=== PATIENT | male | born 1960 | race Caucasian/White ===

== ENCOUNTER → 2016-08-29 | Outpatient (CLI) | payer OTHER ==
[2016-08-29 08:25] LABS: BASOPHILS # (AUTO) 0.1 X10^3/uL (0.0-0.1); BASOPHILS % (AUTO) 1.2 % (0.2-1.0); EOSINOPHILS # (AUTO) 0.3 x10^3/uL (0.0-0.2); HEMATOCRIT 38.2 % (42.0-54.0); HEMOGLOBIN 13.1 g/dL (13.5-18.0); LYMPHOCYTES # (AUTO) 1.1 X10^3/uL (1.3-2.9); MEAN CORPUSCULAR HEMOGLOBIN 31.6 pg (27.0-34.0); MEAN CORPUSCULAR HGB CONC 34.3 g/dL (33.0-35.0); MEAN CORPUSCULAR VOLUME 92.2 fL (80.0-100.0); MEAN PLATELET VOLUME 7.2 fL (7.4-11.0); MONOCYTES # (AUTO) 0.4 x10^3/uL (0.3-0.8); MONOCYTES % (AUTO) 8.5 % (0.0-13.0); NEUTROPHILS # (AUTO) 2.9 x10^3/uL (2.2-4.8); NEUTROPHILS % (AUTO) 61.3 % (42.0-75.0); PLATELET COUNT 116 X10^3/uL (150.0-450.0); RED BLOOD COUNT 4.14 X10^6/uL (4.7-6.0); RED CELL DISTRIBUTION WIDTH 14.3 % (11.6-16.5); WHITE BLOOD COUNT 4.8 X10^3/uL (3.6-10.0)
--- NOTE | 2016-08-29 08:39 | RAD ---
HISTORY: COPD Study: Chest two-view Comparison: None Findings: The heart is within normal limits in size. The dejan are normal. The lungs are mildly hyperinflated b ut free of acute alveolar infiltrates. No pleural effusions are identified. The bony thorax is unrem arkable. IMPRESSION: Lungs hyperinflated but clear Reported By:
[2016-08-29 08:46] LABS: ALANINE AMINOTRANSFERASE 21 Units/L (12-78); ALBUMIN 3.1 g/dL (3.4-5.0); ALKALINE PHOSPHATASE 116 Units/L (46-116); ASPARTATE AMINO TRANSFERASE 24 Units/L (15-37); BLOOD UREA NITROGEN 8 mg/dL (7-18); CALCIUM 8.5 mg/dL (8.5-10.1); CARBON DIOXIDE 27.4 mmol/L (21-32); CHLORIDE 109 mmol/L (98-107); CHOL/HDL RATIO 3.9 (0.0-5.0); CHOLESTEROL 124 mg/dL (0-200); COR CA(FOR HYPOALB) 9.2 mg/dL (8.5-10.1); CREATININE 0.97 mg/dL (0.70-1.30); GLUCOSE 94 mg/dL (65-99); HDL CHOLESTEROL 32 mg/dL (40-60); SODIUM 143 mmol/L (136-145); T4 (THYROXINE) 6.6 ug/dL (4.7-13.3); TOTAL PROTEIN 7.5 g/dL (6.4-8.2); TRIGLYCERIDES 49 mg/dL (0-150); TSH (3RD GENERATION) 4.051 uIU/mL (0.358-3.74); eGFR BLACK RACES > 60 (>60); eGFR NON BLACK RACES > 60 (>60)
== END ==
LOC: LAB 07:54
PROVIDERS: ATTEND Internal Medicine
DX: J44.9 Chronic obstructive pulmonary disease, unspecified (principal); I25.10 Atherosclerotic heart disease of native coronary artery without angina pectoris; E78.2 Mixed hyperlipidemia
CPT/HCPCS: 36415; 71020; 80053; 80061; 84436; 84443; 85025; 93005; 93010

== ENCOUNTER 2019-01-19 11:34 | Observation (INO) ==
[2019-01-19 11:48] VITALS: BMI 23.6
--- NOTE | 2019-01-19 12:34 | DR.EXTPAIN ---
HPI Time seen Time Seen by Provider: 01/19/19 12:34 PCP Primary Care Physician: FRANCIS HPI Comment HPI Comment: PATIENT IS 58YR OLD WHITE MALE IN ED WITH REDNESS AND PAIN RIGHT LEG WITH RED STRAKING TO RIGHT UPPER THIGH NEAR GROIN AREA. REDNESS STARTED FEW DAYS AGO AFTER PATIENT HIT HIS RIGHT LEG AND SUSTAIN A SMALL ABRSION. THIS HAS PROGRESSIVELY GOTTEN WORSE. NO FEVER. CONSTANT BURNING PAIN 7/10 RADIATING TO FOOT AND THIGHS ON RIGHT SIDE. MEDS TAKEN AT HOME DID NOT HELP PAIN. PATIENT SAID SEVERAL DAYS AGO, STOOL WAS DARK IN COLLOR. HAVE CIRRHROSIS OF THE LIVE AND UNDER CARE OF GI DOCTOR IN [place]. Complaint/Symptoms Chief Complaint Doctor Comments: SWELLING, REDNESS WITH STREKING RIGHT LEG TIMES FEW DAYS. Chief Complaint:: PT STATES HE HIT HIS LEG ON SOMETHING A FEW DAYS AGO AND SINCE THEN HE HAS NOTICED REDNESS ON SWELLING INTO RIGHT LOWER LEG THAT EXTENDS UP TO THE INNER RIGHT THIGH. PT C/O CONSTANT BURING PAIN INTO LEG/ Nurses notes reviewed Nurses Notes Review: Yes Source History Provided: Patient Mode of arrival Mode of Arrival: Ambulatory Timing Onset of Chief Complaint: 01/19/19 Context History of: None Associated signs and symptoms Associated Signs and Symptoms: Pain and Swelling Other history Other History: PATIENT HAVE LIVER CIRRHOSIS. PMH PMH Past Medical History: Yes Past Medical History: Liver Disease and PUD Past Medical History Comment: CIRRHOSIS Past Surgical History: Yes Surgical History: Ortho Surgery Family History History of Family Medical Conditions: Yes Family Medical History: [place] and Coronary Artery Disease Social History Does patient currently use any type of tobacco product: No Have you used tobacco products in the last 12 months: No Type of Tobacco Use: Cigarettes Does any household member use tobacco: Yes Alcohol Use: None Do you use any recreational Drugs:: No Lives With: Family Lives Where: Home infectious screening In the last 2 months have you had wt loss of >10#?: NO Have you had fever, night sweats or hemotysis?: No Have you traveled outside the country in the last 6 months?: No Isolation: Standard ROS Review of Systems Constitutional: See HPI, Weakness and Fatigue; negative Fever Eyes: No Symptoms Reported and See HPI; negative Eye Pain and Discharge ENTM: No Symptoms Reported and See HPI; negative Ear Pain, Nose Discharge, Nose Congestion and Throat Pain Respiratoy: See HPI and Short of Breath; negative Moist Cough and Wheezing Cardiovascular: See HPI and Edema; negative Chest Pain and Palpitations Gastrointestinal/Abdominal: See HPI, Abdominal Pain and Other (ASCITIS.); negative Constipation, Diarrhea, Nausea and Vomiting Genitourinary: No Symptoms Reported; negative Dysuria, Frequency and Hematuria Neurological: See HPI, Depressed, Headache, Weakness and Dizziness Musculoskeletal: See HPI, Back Pain and Muscle Pain Integumentary: Change in Color (REDNESS AND SWELLING RIGHT LEG WIT RED STREAKING TO RIGHT THIGH.) and Juandice Hematologic/Lymphatic: See HPI, Anemia, Easy Bleeding and Easy Bruising; negative Swollen Glands Endocrine: See HPI and Decreased Appetite; negative Increased Thirst and Inc reased Urine Psychiatric: See HPI and Depression; negative Hallucinations All Other Systems: Reviewed and Negative PE Vital Signs Vitals: Temperature 97.7 F Pulse Rate [Left Brachial] 103 Pulse Rate 118 Respiratory Rate 20 Blood Pressure [Right Arm] 153/88 Blood Pressure [Left Arm] 117/65 Blood Pressure 106/66 O2 Sat by Pulse Oximetry 98 General Limitations: No Limitations General Appearance: Alert and In No Apparent Distress Head Head Exam: Normal Inspection and Atraumatic Eyes Eye exam: Normal Appearance, PERRL, EOMI and Scleral Icterus; negative Conjunctival Injection (PALE CONJUNCTIVA.) ENT ENT Exam: Normal Exam, Normal Oropharynx, Normal External Ear Exam and TM's Normal Bilaterally Neck Neck Exam: Normal Inspection and Trachea Midline; negative Tenderness and Lymphadenopathy Chest Chest Inspection: Normal Inspection and Symmetric Chest Wall Rise; negative Tenderness Respiratory Respiratory Exam: Normal Lung Sounds Bilat; negative Accessory Muscle Use, Chest Wall Tenderness and Respiratory Distress Respiratory Exam: Bilateral: Rhonchi and Lower: Rhonchi Cardiovascular Cardiovascular Exam: Regular Rate, Normal Rhythm and Normal Heart Sounds; negative Systolic Murmur and Diastolic Murmur Abdominal Exam Abdominal Exam: Normal Bowel Sounds, Soft, Tenderness and Ascites; negative Organomegaly and Mass Abdominal Tenderness: Diffuse Extremities Extremities Exam: Tenderness (RIGHT LEG RED, SWOLLEN AND TENDER. RED STREAKING INNER RIGHT THIGH NEAR GROIN AREA.), Normal Capillary Refill and Edema; negative Calf Tenderness Lower Extremities Neurovascular/Tendon Exam: Normal Capillary Refill; negative Pulse Deficit, Motor Deficit and Sensory Deficit Gait Exam: Observed and Normal Back Back Exam: Normal Inspection; negative Tenderness, (R) CVA Tenderness, (L) CVA Tenderness, Paraspinal Tenderness and Vertebral Tenderness Neurological Neurological Exam: Alert, Oriented X3 and CN II-XII Intact; negative Motor Sensory Deficit Psychiatric Psychiatric Exam: Normal Affect and Normal Mood Skin Skin Exam: Erythema and Other (JAUNDICE.) Type of Lesion: Abscess Distribution: RLE Description: Tenderness and Erythematous MDM Differential Diagnosis Differential Diagnosis: Other (CELLULITIS RIGHT LEG, JAUDICE, LIVER CIRRHOSIS, ANEMIA,) COURSE Treatment Treatment: SEE ORDERS. Consultation Consultation Comments: DISCUSS PATIENTWITH DR. CARBAJAL. HE WILL ADMIT PATIENT. TIME 3MINUTES. ORDERS DONE. Education/Counseling Education/Counseling: Patient Educated On: Diagnosis ROR Labs Reviewed Laboratory Results Reviewed?: Yes Result Diagrams: 01/20/19 05:42 01/20/19 05:42 Laboratory: 01/20/19 08:54 Leg - Right Gram Stain - Final WBC 6.7 X10^3/uL (3.6-10.0) 01/20/19 05:42 RBC 2.09 X10^6/uL (4.7-6.0) L 01/20/19 05:42 Hgb 7.5 g/dL (13.5-18.0) L 01/20/19 05:42 Hct 20.6 % (42.0-54.0) L 01/20/19 05:42 MCV 98.8 fL (80.0-100.0) 01/20/19 05:42 MCH 35.7 pg (27.0-34.0) H 01/20/19 05:42 MCHC 36.2 g/dL (33.0-35.0) H 01/20/19 05:42 RDW 13.5 % (11.6-16.5) 01/20/19 05:42 Plt Count 123 X10^3/uL (150.0-450.0) L 01/20/19 05:42 Plt Count Comment Decreased (ADEQUATE) 01/20/19 05:42 MPV 8.0 fL (7.4-11.0) 01/20/19 05:42 Neut % (Auto) 69.5 % (42.0-75.0) 01/20/19 05:42 Lymph % (Auto) 13.8 % (21.0-51.0) L 01/20/19 05:42 [place] % (Auto) 11.5 % (0.0-13.0) 01/20/19 05:42 Eos % (Auto) 5.2 % (0.9-2.9) H 01/20/19 05:42 Baso % (Auto) 0 % (0.2-1.0) L 01/20/19 05:42 Neut # (Auto) 4.6 x10^3/uL (2.2-4.8) 01/20/19 05:42 Lymph # (Auto) 0.9 X10^3/uL (1.3-2.9) L 01/20/19 05:42 [place] # (Auto) 0.8 x10^3/uL (0.3-0.8) 01/20/19 05:42 Eos # (Auto) 0.3 x10^3/uL (0.0-0.2) H 01/20/19 05:42 Baso # (Auto) 0.0 X10^3/uL (0.0-0.1) 01/20/19 05:42 Absolute Nucleated RBC 0.1 /100WBC 01/20/19 05:42 Plt Morphology Comment Normal (NORMAL) 01/20/19 05:42 RBC Morphology Abnormal (NORMAL) 01/20/19 05:42 Hypochromasia Slight A 01/20/19 05:42 PT 17.8 SECONDS (11.8-14.3) 01/19/19 12:53 INR Target Range - 01/19/19 12:53 INR 1.53 (0.8-1.3) H 01/19/19 12:53 APTT 32.5 SECONDS (22.9-36.5) 01/19/19 12:53 PTT Comment - 01/19/19 12:53 Sodium 138 mmol/L (136-145) 01/20/19 05:42 Corrected Sodium 138 mmol/L (136-145) 01/20/19 05:42 Potassium 3.5 mmol/L (3.5-5.1) 01/20/19 05:42 Chloride 106 mmol/L (98-107) 01/20/19 05:42 Carbon Dioxide 21.8 mmol/L (21-32) 01/20/19 05:42 BUN 16 mg/dL (7-18) 01/20/19 05:42 Creatinine 0.83 mg/dL (0.70-1.30) 01/20/19 05:42 Est GFR (MDRD) Af Amer > 60 (>60) 01/20/19 05:42 Est GFR (MDRD) Non-Af > 60 (>60) 01/20/19 05:42 Glucose 112 mg/dL (65-99) H 01/20/19 05:42 Calcium 7.8 mg/dL (8.5-10.1) L 01/20/19 05:42 Corrected Calcium 9.1 mg/dL (8.5-10.1) 01/20/19 05:42 Magnesium 2.0 mg/dL (1.7-2.9) 01/20/19 05:42 Iron 47 ug/dL (50-175) L 01/20/19 05:42 Transferrin 166 mg/dL (202-364) L 01/20/19 05:42 Ferritin 174 ng/mL (26-388) 01/20/19 05:42 Total Bilirubin 1.10 mg/dL (0.2-1.0) H 01/20/19 05:42 AST 44 Units/L (15-37) H 01/20/19 05:42 ALT 28 Units/L (12-78) 01/20/19 05:42 Alkaline Phosphatase 133 Units/L (46-116) H 01/20/19 05:42 Total Protein 6.4 g/dL (6.4-8.2) 01/20/19 05:42 Albumin 2.4 g/dL (3.4-5.0) L 01/20/19 05:42 Globulin 4.0 g/dL (2.5-4.5) 01/20/19 05:42 Albumin/Globulin Ratio 0.6 Ratio (1.1-2.1) L 01/20/19 05:42 Vitamin B12 827 pg/mL (193-986) 01/20/19 05:42 Folate 12.4 ng/mL (>8.6) 01/20/19 05:42 Specimen Type Random urine 01/19/19 13:07 Urine Color Dark yellow (YELLOW) 01/19/19 13:07 Urine Appearance Slightly hazy (CLEAR) 01/19/19 13:07 Urine pH 6.0 (5.0 - 8.0) 01/19/19 13:07 Ur Specific [place] 1.020 (1.000-1.030) 01/19/19 13:07 Urine Protein 1+ (NEGATIVE) 01/19/19 13:07 Urine Glucose (UA) Negative (NEGATIVE) 01/19/19 13:07 Urine Ketones Negative (NEGATIVE) 01/19/19 13:07 Urine Occult Blood Negative (NEGATIVE) 01/19/19 13:07 Urine Nitrite Negative (NEGATIVE) 01/19/19 13:07 Urine Bilirubin Negative (NEGATIVE) 01/19/19 13:07 Urine Urobilinogen 2+ (NORMAL) 01/19/19 13:07 Ur Leukocyte Esterase 1+ (NEGATIVE) 01/19/19 13:07 Urine RBC 0-2 /HPF (0-3) 01/19/19 13:07 Urine WBC 3-5 /HPF (0-5) 01/19/19 13:07 Ur Squamous Epith Cells Few /HPF (NEGATIVE) 01/19/19 13:07 Calcium Oxalate Crystal Moderate /HPF (NEGATIVE) 01/19/19 13:07 Amorphous Sediment 1+ /HPF (NEGATIVE) 01/19/19 13:07 Urine Bacteria Trace /HPF (NEGATIVE) 01/19/19 13:07 Urine Sperm Rare /HPF (NEGATIVE) 01/19/19 13:07 Ur Culture Indicated? No/not indicated 01/19/19 13:07 Blood Type A POSITIVE 01/19/19 14:34 Antibody Screen Negative 01/19/19 14:34 Opioid Opioid Risk Tool Age (Nicholas box if 16-45): No Total: 0 Total Score Risk Category: Low Risk Copyright: Alec predicting aberrant behaviors Diagnosis Discharge Problem: Cellulitis of right lower extremity Anemia Qualifiers: Anemia type: unspecified type Qualified Code(s): D64.9 - Anemia, unspecified Cirrhosis Qualifiers: Hepatic cirrhosis type: unspecified hepatic cirrhosis Ascites presence: with ascites Qualified Code(s): K74.60 - Unspecified cirrhosis of liver
[2019-01-19 13:07] LABS: BASOPHILS # (AUTO) 0.1 X10^3/uL (0.0-0.1); EOSINOPHILS # (AUTO) 0.2 x10^3/uL (0.0-0.2); HEMOGLOBIN 7.4 g/dL (13.5-18.0); RED BLOOD COUNT 2.07 X10^6/uL (4.7-6.0); RED CELL DISTRIBUTION WIDTH 13.3 % (11.6-16.5)
[2019-01-19 13:12] LABS: BASOPHILS % (AUTO) 1.2 % (0.2-1.0); EOSINOPHILS % (AUTO) 3.3 % (0.9-2.9); LYMPHOCYTES # (AUTO) 0.9 X10^3/uL (1.3-2.9); LYMPHOCYTES % (AUTO) 15.4 % (21.0-51.0); MEAN CORPUSCULAR HEMOGLOBIN 35.5 pg (27.0-34.0); MEAN CORPUSCULAR HGB CONC 36.7 g/dL (33.0-35.0); MEAN CORPUSCULAR VOLUME 96.7 fL (80.0-100.0); MEAN PLATELET VOLUME 7.3 fL (7.4-11.0); MONOCYTES # (AUTO) 0.5 x10^3/uL (0.3-0.8); MONOCYTES % (AUTO) 9.2 % (0.0-13.0); NEUTROPHILS # (AUTO) 4.1 x10^3/uL (2.2-4.8); NEUTROPHILS % (AUTO) 70.9 % (42.0-75.0); PLATELET COUNT 131 X10^3/uL (150.0-450.0); WHITE BLOOD COUNT 5.8 X10^3/uL (3.6-10.0)
[2019-01-19 13:20] LABS: ALANINE AMINOTRANSFERASE 24 Units/L (12-78); ALBUMIN 2.6 g/dL (3.4-5.0); ALKALINE PHOSPHATASE 117 Units/L (46-116); ASPARTATE AMINO TRANSFERASE 37 Units/L (15-37); BLOOD UREA NITROGEN 23 mg/dL (7-18); CALCIUM 7.4 mg/dL (8.5-10.1); CARBON DIOXIDE 23.4 mmol/L (21-32); CHLORIDE 102 mmol/L (98-107); COR CA(FOR HYPOALB) 8.5 mg/dL (8.5-10.1); CREATININE 0.78 mg/dL (0.70-1.30); SODIUM 134 mmol/L (136-145); TOTAL PROTEIN 6.5 g/dL (6.4-8.2); eGFR NON BLACK RACES > 60 (>60)
[2019-01-19 13:31] LABS: PLATELET MORPHOLOGY COMMENT NORMAL (NORMAL)
[2019-01-19] MEDS ORDERED: VANCOMYCIN HCL 1 G in D5W 250 ML IV 250 ML IV ONE (14:16)
[2019-01-19] MEDS ORDERED: VANCOMYCIN HCL ONE (14:22)
[2019-01-19] MEDS ORDERED: NS 250 ML IV 250 ML IV ONE (14:22)
[2019-01-19 14:44] LABS: BILIRUBIN,URINE NEGATIVE (NEGATIVE); BLOOD/HEMOGLOBIN,URINE NEGATIVE (NEGATIVE); GLUCOSE, URINE NEGATIVE (NEGATIVE); KETONES,URINE NEGATIVE (NEGATIVE); LEUKOCYTE ESTERASE ,URINE 1+ (NEGATIVE); NITRITES,URINE NEGATIVE (NEGATIVE); PROTEIN,URINE 1+ (NEGATIVE); UROBILINOGEN,URINE 2+ (NORMAL)
[2019-01-19] MEDS: PROTONIX INJ 40 MG VIAL 80 MG in NS 100 ML IV 80 ML IV SCH (14:44)
[2019-01-19 14:49] LABS: AMORPHOUS SEDIMENT,UR 1+ /HPF (NEGATIVE); APPEARANCE,URINE SLIGHTLY HAZY (CLEAR); BACTERIA,URINE TRACE /HPF (NEGATIVE); CALCIUM OXALATE CRYSTALS,UR MODERATE /HPF (NEGATIVE); COLOR,URINE DARK YELLOW (YELLOW); RBC,URINE 0-2 /HPF (0-3); SPERM,URINE RARE /HPF (NEGATIVE); SQUAMOUS EPITHELIAL CELL,UR FEW /HPF (NEGATIVE)
[2019-01-19] MEDS ORDERED: PHARMACY CONSULT - VANCOMYCIN XX SCH (15:00)
[2019-01-19] MEDS ORDERED: POTASSIUM CHL 60 MEQ/NS 0.45% 500 ML IV PRN (15:47)
[2019-01-19] MEDS ORDERED: K-DUR TAB 20 MEQ PO PRN (15:47)
[2019-01-19] MEDS ORDERED: POTASSIUM CHL 40 MEQ/NS 0.45% 500 ML IV PRN (15:47)
[2019-01-19] MEDS ORDERED: KLOR-CON PO PRN (15:47)
[2019-01-19] MEDS ORDERED: MICRO K EXTEN CAP 10 MEQ PO PRN (15:47)
[2019-01-19] MEDS ORDERED: K-RIDER 10 MEQ/NS 100 ML 10 MEQ/100 ML BAG IV PRN (15:47)
[2019-01-19] MEDS ORDERED: POTASSIUM CHLORIDE LIQ 20 MEQ UDC PO PRN (15:47)
[2019-01-19] MEDS ORDERED: ZOFRAN TAB 4 MG PO PRN (17:24)
[2019-01-19] MEDS: NS 1000 ML 1,000 ML IV SCH (20:04)
[2019-01-19] MEDS: VANCOMYCIN HCL 1 G in D5W 250 ML IV 250 ML IV SCH (21:52)
[2019-01-20] MEDS: MAGNESIUM SULFATE 1 GRAM/100 mL PREMIX 1 GM/100 ML BAG IV PRN ×2 (00:23→01:20)
[2019-01-20] MEDS: PROTONIX INJ 40 MG VIAL 80 MG in NS 100 ML IV 80 ML IV SCH ×3 (01:20→14:09)
[2019-01-20] MEDS: NS 1000 ML 1,000 ML IV SCH ×3 (02:15→11:17)
[2019-01-20] MEDS: VANCOMYCIN HCL 1 G in D5W 250 ML IV 250 ML IV SCH ×2 (05:32→14:10)
[2019-01-20 06:38] LABS: BASOPHILS % (AUTO) 0 % (0.2-1.0); EOSINOPHILS # (AUTO) 0.3 x10^3/uL (0.0-0.2); EOSINOPHILS % (AUTO) 5.2 % (0.9-2.9); HEMATOCRIT 20.6 % (42.0-54.0); HEMOGLOBIN 7.5 g/dL (13.5-18.0); LYMPHOCYTES # (AUTO) 0.9 X10^3/uL (1.3-2.9); LYMPHOCYTES % (AUTO) 13.8 % (21.0-51.0); MEAN CORPUSCULAR HEMOGLOBIN 35.7 pg (27.0-34.0); MEAN CORPUSCULAR HGB CONC 36.2 g/dL (33.0-35.0); MEAN CORPUSCULAR VOLUME 98.8 fL (80.0-100.0); MONOCYTES # (AUTO) 0.8 x10^3/uL (0.3-0.8); MONOCYTES % (AUTO) 11.5 % (0.0-13.0); NEUTROPHILS # (AUTO) 4.6 x10^3/uL (2.2-4.8); NEUTROPHILS % (AUTO) 69.5 % (42.0-75.0); PLATELET COUNT 123 X10^3/uL (150.0-450.0); RED BLOOD COUNT 2.09 X10^6/uL (4.7-6.0); RED CELL DISTRIBUTION WIDTH 13.5 % (11.6-16.5); WHITE BLOOD COUNT 6.7 X10^3/uL (3.6-10.0)
[2019-01-20 06:58] LABS: ALANINE AMINOTRANSFERASE 28 Units/L (12-78); ALBUMIN 2.4 g/dL (3.4-5.0); ALKALINE PHOSPHATASE 133 Units/L (46-116); ASPARTATE AMINO TRANSFERASE 44 Units/L (15-37); BLOOD UREA NITROGEN 16 mg/dL (7-18); CALCIUM 7.8 mg/dL (8.5-10.1); CARBON DIOXIDE 21.8 mmol/L (21-32); CHLORIDE 106 mmol/L (98-107); COR CA(FOR HYPOALB) 9.1 mg/dL (8.5-10.1); COR NA(FOR HYPERGLY) 138 mmol/L (136-145); CREATININE 0.83 mg/dL (0.70-1.30); SODIUM 138 mmol/L (136-145); TOTAL PROTEIN 6.4 g/dL (6.4-8.2); eGFR NON BLACK RACES > 60 (>60)
[2019-01-20 07:24] LABS: HYPOCHROMASIA SLIGHT; PLATELET MORPHOLOGY COMMENT NORMAL (NORMAL)
[2019-01-20] MEDS ORDERED: ULTRAM PO PRN (09:13)
[2019-01-20] MEDS ORDERED: LIBRIUM PO PRN (09:16)
[2019-01-20] MEDS ORDERED: MORPHINE SULFATE INJ 2 MG INJ IVP PRN (09:23)
[2019-01-20] MEDS ORDERED: PHARMACY COMMENT IV NR (13:30)
[2019-01-20] MEDS ORDERED: D5W 250 ML IV 250 ML IV ONE (14:01)
[2019-01-20 16:30] VITALS: BP 153/88
--- NOTE | 2019-01-20 17:42 | DR.H&P ---
H&P - History & Physical for Day of: H&P Date: 01/19/19 - Chief Complaint Chief Complaint: sore to right leg with infection - History of Present Illness History of Present Illness: PT STATES HE HIT HIS LEG ON SOMETHING A FEW DAYS AGO AND SINCE THEN HE HAS NOTICED REDNESS ON SWELLING INTO RIGHT LOWER LEG THAT EXTENDS UP TO THE INNER RIGHT THIGH. PT C/O CONSTANT BURING PAIN INTO LEG. PT HAS PMH OF CIRRHOSIS. PT HAD OA RIGHT HIP. PT ADMITTED FOR IV ATBX THERAPY, BLOOD CULTURES ON ADMISSION. - Past Medical History Past Medical History: Anxiety, Arthritis, Liver Disease, PUD - Past Surgical History Surgical History: Joint Replacement, Other - Family History Family Medical History: [place], Coronary Artery Disease - Social History Does patient currently use any type of tobacco product: Yes Have you used tobacco products in the last 12 months: Yes Type of Tobacco Use: Cigarettes How many years tobacco product used: 45 Does any household member use tobacco: No Alcohol Use: None Drug Use: Prescription Drugs - Medications Home Medications: No Known Drug Allergies Allergy (Verified 01/19/19 11:47) CONTINUE taking the following medications NK 01/19/19 [History] - Review of Systems Constitutional: Fever, Weakness Eyes: No Symptoms Reported ENT: No Symptoms Reported Respiratory: No Symptoms Reported Cardiovascular: No Symptoms Reported Gastrointestinal: No Symptoms Reported Musculoskeletal: No Symptoms Reported, Leg Pain Skin: Wound Neurological: No Symptoms Reported - Physical Exam Vital Signs: Temperature 97.7 F Pulse Rate [Left Brachial] 103 Pulse Rate 118 Respiratory Rate 20 Blood Pressure [Right Arm] 153/88 Blood Pressure [Left Arm] 117/65 Blood Pressure 106/66 O2 Sat by Pulse Oximetry 98 Oriented: Normal Eyes: Normal Ear: Normal Nose: Normal Throat: Normal Respiratory: Clear Throughout Cardiovascular: Normal : Normal Auscultation: Bowel Sounds: Normal Palpation: Normal Tenderness: Normal Skin: Red, Tender, Hot, Wound (RIGHT LOWER LEG) Musculoskeletal: Right, Hip, Leg, Swelling, Tender Psychiatric: Normal Speech Pattern: Clear, Appropriate - Assessment/Plan (1) Cirrhosis Status: Acute Plan: ADMIT, BLOOD CULTURE COLLECTED ON ADMISSION. AM LABS, IV ATBX THERAPY. ANEMIA PANEL, OCCULT STOOL (2) Cellulitis of right lower extremity Status: Acute (3) Anemia Status: Acute - Allergies Allergies/Adverse Reactions: Allergies Allergy/AdvReac Type Severity Reaction Status Date / Time No Known Drug Allergies Allergy Verified 01/19/19 11:47
--- NOTE | 2019-01-20 17:47 | PCM.PROG ---
Progress Note - Progress Note for Day of Date of Exam: 01/20/19 (0800) - Subjective Subjective: 58 WM ER ADMISSIN WITH RLE WOUND WITH CELLULITIS BLOOD CULTURE COLLECTED ON ADMISSSION, PT HAS HX OF LIVER DISEASE, CIRRHOSIS. PT HGB 7.5. ANEMIA PANEL OBTAINED WITH FE DEFICIENCY. PT HAD BEDSIDE DRAINAGE OF ABSCESS WITH THICK PURULENT D/C CULTURED X 2. PT STATES HE FEELS OK, JUST PAIN TO RLE WHEN TOUCHING REDENED AREA. PT GIVEN LIBRIUM PRN DUE TO HX OF ETOH USE, PRN PAIN CONTROL. - Past Medical Family Social History Past Med/Fam/Surg Hx: No changes since H&P Allergies: Allergies No Known Drug Allergies Allergy (Verified 01/19/19 11:47) - Review of Systems ROS: No change since H&P - Vital Signs and I&O's Vital Signs: Temperature 97.7 F Pulse Rate [Left Brachial] 103 Pulse Rate 118 Respiratory Rate 20 Blood Pressure [Right Arm] 153/88 Blood Pressure [Left Arm] 117/65 Blood Pressure 106/66 O2 Sat by Pulse Oximetry 98 Intake and Output: Intake & Output 01/18/19 01/19/19 01/20/19 01/21/19 11:59 11:59 11:59 11:59 Intake Total 1929 1580 / 1580 Balance 1929 1580 / 1580 - Physical Exam Oriented: Normal Eyes: Normal Ear: Normal Nose: Normal Throat: Normal Respiratory: Normal Cardiovascular: Normal : Normal Auscultation: Bowel Sounds: Normal Tenderness: Normal Skin: Red, Tender, Hot, Wound (RIGHT LOWER LEG) Musculoskeletal: Right, Hip, Leg, Swelling, Tender Psychiatric: Normal Speech Pattern: Clear, Appropriate - Laboratory and Diagnostics Result Diagrams: 01/20/19 05:42 01/20/19 05:42 Labs: 01/20/19 08:54 Leg - Right Gram Stain - Final Laboratory WBC 6.7 X10^3/uL (3.6-10.0) 01/20/19 05:42 RBC 2.09 X10^6/uL (4.7-6.0) L 01/20/19 05:42 Hgb 7.5 g/dL (13.5-18.0) L 01/20/19 05:42 Hct 20.6 % (42.0-54.0) L 01/20/19 05:42 MCV 98.8 fL (80.0-100.0) 01/20/19 05:42 MCH 35.7 pg (27.0-34.0) H 01/20/19 05:42 MCHC 36.2 g/dL (33.0-35.0) H 01/20/19 05:42 RDW 13.5 % (11.6-16.5) 01/20/19 05:42 Plt Count 123 X10^3/uL (150.0-450.0) L 01/20/19 05:42 Plt Count Comment Decreased (ADEQUATE) 01/20/19 05:42 MPV 8.0 fL (7.4-11.0) 01/20/19 05:42 Neut % (Auto) 69.5 % (42.0-75.0) 01/20/19 05:42 Lymph % (Auto) 13.8 % (21.0-51.0) L 01/20/19 05:42 [place] % (Auto) 11.5 % (0.0-13.0) 01/20/19 05:42 Eos % (Auto) 5.2 % (0.9-2.9) H 01/20/19 05:42 Baso % (Auto) 0 % (0.2-1.0) L 01/20/19 05:42 Neut # (Auto) 4.6 x10^3/uL (2.2-4.8) 01/20/19 05:42 Lymph # (Auto) 0.9 X10^3/uL (1.3-2.9) L 01/20/19 05:42 [place] # (Auto) 0.8 x10^3/uL (0.3-0.8) 01/20/19 05:42 Eos # (Auto) 0.3 x10^3/uL (0.0-0.2) H 01/20/19 05:42 Baso # (Auto) 0.0 X10^3/uL (0.0-0.1) 01/20/19 05:42 Absolute Nucleated RBC 0.1 /100WBC 01/20/19 05:42 Plt Morphology Comment Normal (NORMAL) 01/20/19 05:42 RBC Morphology Abnormal (NORMAL) 01/20/19 05:42 Hypochromasia Slight A 01/20/19 05:42 PT 17.8 SECONDS (11.8-14.3) 01/19/19 12:53 INR Target Range - 01/19/19 12:53 INR 1.53 (0.8-1.3) H 01/19/19 12:53 APTT 32.5 SECONDS (22.9-36.5) 01/19/19 12:53 PTT Comment - 01/19/19 12:53 Sodium 138 mmol/L (136-145) 01/20/19 05:42 Corrected Sodium 138 mmol/L (136-145) 01/20/19 05:42 Potassium 3.5 mmol/L (3.5-5.1) 01/20/19 05:42 Chloride 106 mmol/L (98-107) 01/20/19 05:42 Carbon Dioxide 21.8 mmol/L (21-32) 01/20/19 05:42 BUN 16 mg/dL (7-18) 01/20/19 05:42 Creatinine 0.83 mg/dL (0.70-1.30) 01/20/19 05:42 Est GFR (MDRD) Af Amer > 60 (>60) 01/20/19 05:42 Est GFR (MDRD) Non-Af > 60 (>60) 01/20/19 05:42 Glucose 112 mg/dL (65-99) H 01/20/19 05:42 Calcium 7.8 mg/dL (8.5-10.1) L 01/20/19 05:42 Corrected Calcium 9.1 mg/dL (8.5-10.1) 01/20/19 05:42 Magnesium 2.0 mg/dL (1.7-2.9) 01/20/19 05:42 Iron 47 ug/dL (50-175) L 01/20/19 05:42 Transferrin 166 mg/dL (202-364) L 01/20/19 05:42 Ferritin 174 ng/mL (26-388) 01/20/19 05:42 Total Bilirubin 1.10 mg/dL (0.2-1.0) H 01/20/19 05:42 AST 44 Units/L (15-37) H 01/20/19 05:42 ALT 28 Units/L (12-78) 01/20/19 05:42 Alkaline Phosphatase 133 Units/L (46-116) H 01/20/19 05:42 Total Protein 6.4 g/dL (6.4-8.2) 01/20/19 05:42 Albumin 2.4 g/dL (3.4-5.0) L 01/20/19 05:42 Globulin 4.0 g/dL (2.5-4.5) 01/20/19 05:42 Albumin/Globulin Ratio 0.6 Ratio (1.1-2.1) L 01/20/19 05:42 Vitamin B12 827 pg/mL (193-986) 01/20/19 05:42 Folate 12.4 ng/mL (>8.6) 01/20/19 05:42 Specimen Type Random urine 01/19/19 13:07 Urine Color Dark yellow (YELLOW) 01/19/19 13:07 Urine Appearance Slightly hazy (CLEAR) 01/19/19 13:07 Urine pH 6.0 (5.0 - 8.0) 01/19/19 13:07 Ur Specific [place] 1.020 (1.000-1.030) 01/19/19 13:07 Urine Protein 1+ (NEGATIVE) 01/19/19 13:07 Urine Glucose (UA) Negative (NEGATIVE) 01/19/19 13:07 Urine Ketones Negative (NEGATIVE) 01/19/19 13:07 Urine Occult Blood Negative (NEGATIVE) 01/19/19 13:07 Urine Nitrite Negative (NEGATIVE) 01/19/19 13:07 Urine Bilirubin Negative (NEGATIVE) 01/19/19 13:07 Urine Urobilinogen 2+ (NORMAL) 01/19/19 13:07 Ur Leukocyte Esterase 1+ (NEGATIVE) 01/19/19 13:07 Urine RBC 0-2 /HPF (0-3) 01/19/19 13:07 Urine WBC 3-5 /HPF (0-5) 01/19/19 13:07 Ur Squamous Epith Cells Few /HPF (NEGATIVE) 01/19/19 13:07 Calcium Oxalate Crystal Moderate /HPF (NEGATIVE) 01/19/19 13:07 Amorphous Sediment 1+ /HPF (NEGATIVE) 01/19/19 13:07 Urine Bacteria Trace /HPF (NEGATIVE) 01/19/19 13:07 Urine Sperm Rare /HPF (NEGATIVE) 01/19/19 13:07 Ur Culture Indicated? No/not indicated 01/19/19 13:07 Blood Type A POSITIVE 01/19/19 14:34 Antibody Screen Negative 01/19/19 14:34 - Plan (1) Cellulitis of right lower extremity Status: Acute Plan: BLOOD CULTURE COLLECTED ON ADMISSION, WOUND CULTURE OBTAINED X 2. AM LABS, IV ATBX THERAPY, PRN LIBRIUM AND PAIN CONTROL. ANEMIA PANEL, OCCULT STOOL (2) Cirrhosis Status: Acute (3) Anemia Status: Acute
== END 2019-01-20 17:09 | disposition left against medical advice (07) ==
LOC: ER 11:34 → MED/SURG 11:34
PROVIDERS: ADMIT Internal Medicine; ATTEND Internal Medicine
DX: L03.115 Cellulitis of right lower limb; K74.60 Unspecified cirrhosis of liver; R79.1 Abnormal coagulation profile; W22.8XXA Striking against or struck by other objects, initial encounter; F41.8 Other specified anxiety disorders; R60.0 Localized edema; D50.8 Other iron deficiency anemias; S81.801A Unspecified open wound, right lower leg, initial encounter; B95.62 Methicillin resistant Staphylococcus aureus infection as the cause of diseases classified elsewhere; Y92.9 Unspecified place or not applicable
CPT/HCPCS: 36415; 80053; 81001; 82607; 82728; 82746; 83540; 83735; 84466; 85025; 85610; 85730; 86850; 86900; 86901; 87040; 87070; 87075; 87077; 87186; 87205; 96365; 96367; 96374; 96375; 99284; A4222; C9113; G0378; J3370; J3475; J7030; J7050; J7060